=== PATIENT | male | born 1950 | race Caucasian/White ===

== ENCOUNTER 2016-11-29 13:05 | Inpatient (IN) | payer MEDICAID, MEDICARE ==
[~2016-11-29] VITALS: Ht 172.7 cm; Wt 88.8 kg
[~2016-11-29 13:05] MED LIST: ASPI-430 PO; ASPI-621 PO; ATOR20TA9 PO; ATOR40TA78 PO; CARV3.1212 PO; DABI150C PO; ENAL5TAB PO; LISI5TAB7 PO; METO25TA35 PO; PRAV20TA2 PO
[2016-11-29] MEDS ORDERED: FAMOTIDINE 20 MG/2 ML ONE (13:36)
[2016-11-29] MEDS ORDERED: ONDANSETRON 2MG/ML, 2ML ONE (13:36)
[2016-11-29] MEDS ORDERED: ONDANSETRON 2MG/ML, 2ML IVPush ONE (14:00)
[2016-11-29] MEDS ORDERED: FAMOTIDINE 20 MG/2 ML IVP ONE (14:00)
[2016-11-29] MEDS ORDERED: SODIUM CHLORIDE 0.9% 1,000ML IVBOLUS ONE ×2 (14:00)
[2016-11-29] MEDS ORDERED: THIAMINE 100 MG/ML, 2ML IM ONE (14:00)
[2016-11-29] MEDS ORDERED: SODIUM CHLORIDE FLUSH 10ML SYR IVF ONE (14:00)
[2016-11-29] MEDS ORDERED: THIAMINE 100 MG/ML, 2ML ONE (14:20)
[2016-11-29 14:37] LABS: ASPARTATE AMINO TRANSFERASE 118 U/L (15-37); BLOOD UREA NITROGEN 20 mg/dL (7-18)
[2016-11-29 14:49] LABS: DAU SCREEN DISCLAIMER
[2016-11-29] MEDS ORDERED: POTASSIUM CHLORIDE 20 MEQ in SODIUM CHLORIDE 0.9% 250 ML IV ONE (15:00)
[2016-11-29] MEDS: SODIUM CHLORIDE 0.9% 1,000 ML IV SCH ×2 (15:43→22:23)
[2016-11-29] MEDS ORDERED: ONDANSETRON 2MG/ML, 2ML IVP PRN (16:00)
[2016-11-29] MEDS ORDERED: LORazepam 1MG TABLET PO PRN ×3 (16:00)
[2016-11-29] MEDS ORDERED: PROMETHAZINE 25 MG/ML, 1ML IM PRN (16:00)
[2016-11-29] MEDS ORDERED: MAGNESIUM SULFATE PMX 2GM/50ML 50 ML IV ONE (16:00)
[2016-11-29] MEDS ORDERED: BISACODYL 10 MG SUPP PR PRN (16:00)
[2016-11-29] MEDS ORDERED: POLYETHYLENE GLYCOL 17 GM PACKET PO PRN (16:00)
[2016-11-29] MEDS ORDERED: LORazepam 2 MG/ML, 1ML IV PRN ×4 (16:00)
[2016-11-29 16:22] LABS: IS PT STATUS REG ER OR PRE ER? NO
[2016-11-29 16:42] VITALS: BP 94/60
[2016-11-29] MEDS ORDERED: POTASSIUM CHLORIDE 40 MEQ in SODIUM CHLORIDE 0.9% 500 ML IV ONE (18:00)
[2016-11-29] MEDS: LORazepam 2 MG/ML, 1ML IV PRN ×2 (19:30→23:55)
[2016-11-29 20:00] VITALS: BP 109/65
[2016-11-29] MEDS: CEFTRIAXONE PMX 1GM/50ML 50 ML IV SCH (20:27)
[2016-11-29] MEDS: FOLIC ACID 1 MG, THIAMINE 100 MG, MVI ADULT 10 ML in DEXTROSE 5% 1,000 ML IV SCH (21:44)
[2016-11-29 21:59] LABS: IS PT STATUS REG ER OR PRE ER? NO
[2016-11-30 02:00] VITALS: BP 134/86
[2016-11-30] MEDS: SODIUM CHLORIDE 0.9% 1,000 ML IV SCH ×3 (04:28→22:46)
[2016-11-30 05:12] LABS: ASPARTATE AMINO TRANSFERASE 82 U/L (15-37); BLOOD UREA NITROGEN 16 mg/dL (7-18)
[2016-11-30 06:48] VITALS: BP 124/81
[2016-11-30 13:17] VITALS: BP 164/98
[2016-11-30] MEDS ORDERED: POTASSIUM CHLORIDE 40 MEQ in SODIUM CHLORIDE 0.9% 500 ML IV ONE (15:00)
[2016-11-30] MEDS: CEFTRIAXONE PMX 1GM/50ML 50 ML IV SCH (17:50)
[2016-11-30] MEDS: LORazepam 2 MG/ML, 1ML IV PRN (18:03)
[2016-11-30 19:45] VITALS: BP 117/81
[2016-11-30 19:49] LABS: OCCBLD OBC PASS
[2016-11-30] MEDS: FOLIC ACID 1 MG, THIAMINE 100 MG, MVI ADULT 10 ML in DEXTROSE 5% 1,000 ML IV SCH (22:44)
[2016-11-30] MEDS: LORazepam 0.5MG TABLET PO PRN (22:44)
[2016-11-30] MEDS: ATORVASTATIN 40 MG TABLET PO SCH (22:45)
[2016-11-30] MEDS: DABIGATRAN 150 MG CAPSULE PO SCH (22:46)
[2016-11-30] MEDS: LISINOPRIL 5 MG TABLET PO SCH (22:46)
[2016-12-01] MEDS: LORazepam 0.5MG TABLET PO PRN (02:24)
[2016-12-01] MEDS: OXYcodone IR 5MG TABLET PO PRN ×3 (02:25→18:15)
[2016-12-01 03:45] VITALS: BP 97/63
[2016-12-01] MEDS: SODIUM CHLORIDE 0.9% 1,000 ML IV SCH ×2 (06:00→12:40)
[2016-12-01] MEDS: LORazepam 1MG TABLET PO PRN ×2 (06:14→21:23)
[2016-12-01] MEDS ORDERED: POTASSIUM CHLORIDE 20 MEQ TAB.ER.PRT PO ONE (06:30)
[2016-12-01] MEDS: ASPIRIN 81 MG TABLET EC PO SCH (06:42)
[2016-12-01 06:43] LABS: BLOOD UREA NITROGEN 9 mg/dL (7-18)
[2016-12-01 07:40] VITALS: BP 128/81
[2016-12-01] MEDS: DABIGATRAN 150 MG CAPSULE PO SCH ×2 (09:24→21:15)
[2016-12-01] MEDS: LISINOPRIL 5 MG TABLET PO SCH ×2 (09:24→21:15)
[2016-12-01] MEDS: METOPROLOL TARTRATE 25 MG TABLET PO SCH (09:25)
[2016-12-01] MEDS ORDERED: COLCHICINE 0.6 MG TABLET PO ONE ×2 (09:30→10:30)
[2016-12-01 13:17] VITALS: BP 103/65
[2016-12-01] MEDS: FOLIC ACID 1 MG, THIAMINE 100 MG, MVI ADULT 10 ML in DEXTROSE 5% 1,000 ML IV SCH ×2 (17:45→21:52)
[2016-12-01] MEDS: CEFTRIAXONE PMX 1GM/50ML 50 ML IV SCH (17:45)
[2016-12-01 18:49] VITALS: BP 118/60
[2016-12-01] MEDS: ATORVASTATIN 40 MG TABLET PO SCH (21:15)
[2016-12-02 00:53] VITALS: BP 148/82
[2016-12-02] MEDS: SODIUM CHLORIDE 0.9% 1,000 ML IV SCH ×3 (05:21→21:48)
[2016-12-02] MEDS: ASPIRIN 81 MG TABLET EC PO SCH (05:21)
[2016-12-02 05:55] LABS: BLOOD UREA NITROGEN 11 mg/dL (7-18)
[2016-12-02 07:24] VITALS: BP 117/71
[2016-12-02] MEDS: OXYcodone IR 5MG TABLET PO PRN ×2 (10:08→21:48)
[2016-12-02] MEDS: DABIGATRAN 150 MG CAPSULE PO SCH ×2 (10:09→20:20)
[2016-12-02] MEDS: METOPROLOL TARTRATE 25 MG TABLET PO SCH (10:09)
[2016-12-02] MEDS: LISINOPRIL 5 MG TABLET PO SCH ×2 (10:09→20:20)
[2016-12-02] MEDS ORDERED: SODIUM BICARBONATE 4.2%, 5ML ONE (13:02)
[2016-12-02] MEDS ORDERED: LIDOCAINE 1%, 20ML ONE (13:02)
[2016-12-02 13:20] VITALS: BP 123/79
[2016-12-02 16:20] LABS: SYN DILUTIN 1; SYN WBC SQ COUNTED 1
[2016-12-02] MEDS: CEFTRIAXONE PMX 1GM/50ML 50 ML IV SCH (17:00)
[2016-12-02 19:18] VITALS: BP 124/77
[2016-12-02] MEDS: ATORVASTATIN 40 MG TABLET PO SCH (20:20)
[2016-12-03 01:53] VITALS: BP 127/64
[2016-12-03] MEDS: SODIUM CHLORIDE 0.9% 1,000 ML IV SCH ×3 (04:46→17:09)
[2016-12-03] MEDS: ASPIRIN 81 MG TABLET EC PO SCH (06:01)
[2016-12-03 06:30] VITALS: BP 100/69
[2016-12-03] MEDS: METOPROLOL TARTRATE 25 MG TABLET PO SCH (08:38)
[2016-12-03] MEDS: LISINOPRIL 5 MG TABLET PO SCH ×2 (08:38→20:40)
[2016-12-03] MEDS: metroNIDAZOLE 500 MG TABLET PO SCH ×2 (08:38→17:09)
[2016-12-03] MEDS: ALLOPURINOL 100 MG TABLET PO SCH (08:38)
[2016-12-03] MEDS: DABIGATRAN 150 MG CAPSULE PO SCH ×2 (08:38→20:40)
[2016-12-03 14:00] VITALS: BP 106/66
[2016-12-03 20:38] VITALS: BP 138/89
[2016-12-03] MEDS: ATORVASTATIN 40 MG TABLET PO SCH (20:40)
[2016-12-03] MEDS: OXYcodone IR 5MG TABLET PO PRN (20:40)
[2016-12-04] MEDS: metroNIDAZOLE 500 MG TABLET PO SCH ×2 (00:19→07:57)
[2016-12-04] MEDS: SODIUM CHLORIDE 0.9% 1,000 ML IV SCH ×2 (00:19→06:57)
[2016-12-04 02:32] VITALS: BP 121/83
[2016-12-04] MEDS: ASPIRIN 81 MG TABLET EC PO SCH (06:12)
[2016-12-04 07:56] VITALS: BP 151/98
[2016-12-04] MEDS: METOPROLOL TARTRATE 25 MG TABLET PO SCH (07:57)
[2016-12-04] MEDS: ALLOPURINOL 100 MG TABLET PO SCH (07:57)
[2016-12-04] MEDS: DABIGATRAN 150 MG CAPSULE PO SCH (07:57)
[2016-12-04] MEDS: LISINOPRIL 5 MG TABLET PO SCH (07:57)
[2016-12-04] MEDS ORDERED: LORA-445 PO (10:07)
[2016-12-04] MEDS ORDERED: OXYC5TAB3 PO (10:07)
[2016-12-04] MEDS ORDERED: ALLO100T30 PO (10:07)
[2016-12-04] MEDS ORDERED: METR500T PO (10:07)
== END 2016-12-04 11:55 | disposition home or self-care (01) | DRG 371 ==
LOC: ED 14:48 → SUATTDRO 15:25 → 4WST 15:43
PROVIDERS: ADMIT Internal Medicine; ATTEND Internal Medicine
PROC: 0S9C3ZZ Drainage of Right Knee Joint, Percutaneous Approach (ICD-10-PCS; principal; 2016-12-02)
PROC: BQ47ZZZ Ultrasonography of Right Knee (ICD-10-PCS; 2016-12-02)
DX: A04.7 Enterocolitis due to Clostridium difficile (principal); N17.0 Acute kidney failure with tubular necrosis; E87.1 Hypo-osmolality and hyponatremia; N39.0 Urinary tract infection, site not specified; D68.69 Other thrombophilia; I50.22 Chronic systolic (congestive) heart failure; E78.5 Hyperlipidemia, unspecified; E83.42 Hypomagnesemia; E86.0 Dehydration; E87.6 Hypokalemia; I11.0 Hypertensive heart disease with heart failure; I25.10 Atherosclerotic heart disease of native coronary artery without angina pectoris; F10.229 Alcohol dependence with intoxication, unspecified; Y90.9 Presence of alcohol in blood, level not specified; I25.5 Ischemic cardiomyopathy; I48.0 Paroxysmal atrial fibrillation; K70.10 Alcoholic hepatitis without ascites; K80.20 Calculus of gallbladder without cholecystitis without obstruction; M10.9 Gout, unspecified; Z82.49 Family history of ischemic heart disease and other diseases of the circulatory system; Z86.73 Personal history of transient ischemic attack (TIA), and cerebral infarction without residual deficits; I25.2 Old myocardial infarction; Z91.19 Patient's noncompliance with other medical treatment and regimen; Z95.1 Presence of aortocoronary bypass graft; Z95.5 Presence of coronary angioplasty implant and graft; Z88.0 Allergy status to penicillin; Z88.8 Allergy status to other drugs, medicaments and biological substances
CPT/HCPCS: 20606; 20611; 36415; 71010; 76700; 76942; 80048; 80053; 80307; 81001; 82247; 82248; 82272; 83690; 83735; 84100; 84443; 84484; 84550; 85014; 85018; 85025; 85610; 85730; 85810; 87070; 87086; 87205; 87324; 87493; 89050; 89060; 93005; 96361; 96372; 96374; 96375; C8929; J0696; J2405; J3411; J3480; J3490; J7070; J2060; J3475; J7030; J7040; J7050; J7512; S0028

== ENCOUNTER → 2019-08-13 | Outpatient (CLI) | payer MEDICARE, MEDICAID ==
[~2019-08-13] MED LIST changes: +ALLO100T30 PO; -ASPI-621 PO; +ASPI81TA45 PO; +ATOR20TA37 PO; -ATOR20TA9 PO; +LORA-445 PO; +METR500T PO; +OXYC5TAB3 PO
== END | disposition home or self-care (01) ==
LOC: CVU 09:32
PROVIDERS: ATTEND Internal Medicine Cardiovascular Disease
DX: I08.0 Rheumatic disorders of both mitral and aortic valves (principal); I25.10 Atherosclerotic heart disease of native coronary artery without angina pectoris; I10 Essential (primary) hypertension
CPT/HCPCS: 93306

== ENCOUNTER → 2019-12-14 | Outpatient (CLI) | payer MEDICARE, MEDICAID ==
[~2019-12-14] MED LIST changes: +REGADENOSON 0.4 MG/5 ML SYRINGE ONE
== END | disposition home or self-care (01) ==
LOC: CFH 12:20
PROVIDERS: ATTEND Internal Medicine Cardiovascular Disease
DX: I25.10 Atherosclerotic heart disease of native coronary artery without angina pectoris (principal)
CPT/HCPCS: 78452; 93017; A9502; J2785

== ENCOUNTER 2020-01-27 11:38 | Observation (INO) | payer MEDICARE, MEDICAID ==
[~2020-01-27] VITALS: Ht 172.7 cm; Wt 80.0 kg
[~2020-01-27 11:38] MED LIST changes: -REGADENOSON 0.4 MG/5 ML SYRINGE ONE
[2020-01-27] MEDS: SODIUM CHLORIDE 0.9% 1,000 ML IV SCH ×2 (12:19→20:19)
[2020-01-27 12:28] VITALS: BP 146/83
[2020-01-27] MEDS ORDERED: PLEASE ENTER HEIGHT AND WEIGHT MC SCH (12:30)
[2020-01-27] MEDS ORDERED: METO25TA91 PO (12:54)
[2020-01-27] MEDS ORDERED: ASPI81TA45 PO (12:54)
[2020-01-27 13:07] LABS: BASOPHILS # (AUTO) 0.04 x10^3/uL (0-0.1); BASOPHILS % (AUTO) 1 % (0-1); EOSINOPHILS # (AUTO) 0.09 x10^3/uL (0-0.4); EOSINOPHILS % (AUTO) 1 % (1-7); LYMPHOCYTES # (AUTO) 1.86 x10^3/uL (1-3.4); LYMPHOCYTES % (AUTO) 27 % (22-44); MD NO; MEAN CORPUSCULAR HEMOGLOBIN 31.4 pg (27.5-34.5); MEAN CORPUSCULAR HGB CONC 33.2 g/dL (33.2-36.2); MEAN CORPUSCULAR VOLUME 94.6 fL (81-97); MEAN PLATELET VOLUME 8.8 fL (7.4-10.4); MONOCYTES # (AUTO) 0.38 x10^3/uL (0.2-0.8); MONOCYTES % (AUTO) 5 % (2-9); NEUTROPHILS # (AUTO) 4.67 x10^3/uL (1.8-6.8); NEUTROPHILS % (AUTO) 66 % (42-75); PLATELET COUNT 163 x10^3/uL (130-400); RED CELL DISTRIBUTION WIDTH 13.3 % (9.4-14.8)
[2020-01-27 13:13] LABS: ANION GAP 5 mmol/L (5-15); CHLORIDE 105 mmol/L (98-107); CREATININE 1.02 mg/dL (0.7-1.3)
[2020-01-27] MEDS ORDERED: LIDOCAINE 2%, 20ML ONE (14:07)
[2020-01-27] MEDS ORDERED: MIDAZOLAM 1 MG/ML, 5ML ONE (14:07)
[2020-01-27] MEDS ORDERED: FENTANYL PF 100 MCG/2ML ONE (14:07)
[2020-01-27] MEDS ORDERED: VANCOMYCIN PMX 1GM/200ML 200 ML ONE (14:07)
[2020-01-27] MEDS ORDERED: VANCOMYCIN 500 MG ONE (14:07)
[2020-01-27] MEDS ORDERED: LIDOCAINE 1%, 20ML ONE (14:25)
[2020-01-27 15:35] VITALS: BP 135/81
[2020-01-27] MEDS ORDERED: ZOLPIDEM 5MG TABLET PO PRN (16:00)
[2020-01-27] MEDS ORDERED: HOLD MEDICATION MC PRN (16:00)
[2020-01-27] MEDS ORDERED: ACETAMINOPHEN 325 MG TABLET PO PRN (16:00)
[2020-01-27] MEDS ORDERED: METOPROLOL SUCCINATE 25 MG TAB.ER.24H PO SCH (21:00)
[2020-01-27] MEDS ORDERED: ATORVASTATIN 40 MG TABLET PO SCH (21:00)
[2020-01-27 21:45] VITALS: BP 123/81
[2020-01-27] MEDS: HYDROcodone/APAP 5/325 TABLET PO PRN (22:03)
[2020-01-27] MEDS: LISINOPRIL 5 MG TABLET PO SCH (22:03)
[2020-01-27] MEDS: SODIUM CHLORIDE FLUSH 10ML SYR IVF SCH (22:04)
[2020-01-28 01:29] VITALS: BP 89/57
[2020-01-28] MEDS: HYDROcodone/APAP 5/325 TABLET PO PRN (03:37)
[2020-01-28 08:00] VITALS: BP 115/73
[2020-01-28] MEDS: SODIUM CHLORIDE FLUSH 10ML SYR IVF SCH (08:16)
[2020-01-28] MEDS: LISINOPRIL 5 MG TABLET PO SCH (08:16)
== END 2020-01-28 09:07 | disposition home or self-care (01) ==
LOC: CACL 11:38 → 5SO 16:05 → CACL 21:20 → DCLOUNGE 01-28 08:58
PROVIDERS: ADMIT Internal Medicine Clinical Cardiac Electrophysiology; ATTEND Internal Medicine Clinical Cardiac Electrophysiology
DX: Z03.818 Encounter for observation for suspected exposure to other biological agents ruled out (principal); I48.0 Paroxysmal atrial fibrillation; I25.10 Atherosclerotic heart disease of native coronary artery without angina pectoris; E78.5 Hyperlipidemia, unspecified; I25.5 Ischemic cardiomyopathy; I10 Essential (primary) hypertension; I65.29 Occlusion and stenosis of unspecified carotid artery; Z88.0 Allergy status to penicillin; Z95.1 Presence of aortocoronary bypass graft; Z86.73 Personal history of transient ischemic attack (TIA), and cerebral infarction without residual deficits; Z79.82 Long term (current) use of aspirin; Z79.899 Other long term (current) drug therapy
CPT/HCPCS: 33249; 33286; 36415; 71045; 71046; 80048; 85025; 93005; 99156; 99157; C1721; C1779; C1892; C1894; C1895; G0378; J2250; J3010; J3370; J3490; U0001